=== PATIENT | female | born 1945 | race Caucasian/White ===

== ENCOUNTER 2018-06-17 13:39 | Observation (INO) ==
[2018-06-17 20:22] LABS: Baso % (Auto) 1.2 % (0.0-2.0); Eos # (Auto) 0.1 th/mm3 (0.0-0.4); Eos % (Auto) 2.9 % (0.0-4.0); Hematocrit 43.3 % (35.0-46.0); Hemoglobin 14.6 gm/dL (11.6-15.3); Lymph # (Auto) 1.4 th/mm3 (1.0-4.8); Lymph % (Auto) 33.9 % (9.0-44.0); Mean Corpuscular HGB Conc 33.8 % (32.0-36.0); Mean Corpuscular Hemoglobin 32.2 pg (27.0-34.0); Mean Corpuscular Volume 95.3 fL (80.0-100.0); Mean Platelet Volume 7.8 fL (7.0-11.0); Mono # (Auto) 0.2 th/mm3 (0.0-0.9); Mono % (Auto) 5.1 % (0.0-8.0); Neut # (Auto) 2.4 th/mm3 (1.8-7.7); Neut % (Auto) 56.9 % (16.0-70.0); Platelet Count 307 th/mm3 (150-450); Red Blood Count 4.55 mil/mm3 (4.00-5.30); Red Cell Distribution Width 14.4 % (11.6-17.2); White Blood Count 4.2 th/mm3 (4.0-11.0)
--- NOTE | 2018-06-17 20:29 | XR ---
EXAM DATE: 06/17/2018 8:26 PM EST AGE/SEX: 72 years / Female INDICATIONS: Chest pain and shortness of breath for 10 days. CLINICAL DATA: This is the patient's initial encounter. Patient reports that signs and symptoms have been present for 1 week and indicates a pain score of 7/10. MEDICAL/SURGICAL HISTORY: None. None. COMPARISON: No prior exams available for comparison. FINDINGS: Linear parenchymal opacity in the right lower lung zone. The cardiomediastinal contours are unremark able. Osseous structures are intact. CONCLUSION: 1. Linear right lower lung zone parenchymal opacity, likely atelectasis/scarring. Electronically signed by: Miguel Gomez MD Board Certified Radiologist 06/17/2018 8:28 PM EST
[2018-06-17 20:36] LABS: Activated Partial Thrombo Time 26.4 sec (23.4-31.7); Prothrombin Time 9.8 sec (9.8-11.6)
[2018-06-17 20:37] LABS: Alanine Aminotransferase 35 U/L (10-53)
[2018-06-17 20:41] LABS: Alkaline Phosphatase 67 U/L (45-117); Creatine Kinase 125 U/L (26-192); Total Protein 7.6 g/dL (6.4-8.2)
[2018-06-17 20:46] LABS: Albumin 3.7 g/dL (3.4-5.0); Anion Gap 7 meq/L (5-15); Aspartate Aminotransferase 25 U/L (15-37); Blood Urea Nitrogen 13 mg/dL (7-18); Carbon Dioxide 27.4 meq/L (21.0-32.0); Chloride 108 meq/L (98-107); Glomerular Filtration Rate 81 mL/min (>89); Glucose,Random 105 mg/dL (74-106); Magnesium 2.2 mg/dL (1.5-2.5); Sodium 142 meq/L (136-145)
[2018-06-17 20:53] LABS: Creatine Kinase MB 1.8 ng/mL (0.5-3.6)
--- NOTE | 2018-06-17 20:54 | ED ---
HPI General Chief Complaint: Shortness of Breath/Dyspnea Stated Complaint: Sob/weakness complaint Time Seen by Provider: 06/17/18 19:00 Source: patient and RN notes reviewed Mode of arrival: ambulatory Limitations: no limitations History of Present Illness 72-year-old female presents to the emergency department for evaluation of shortness of breath with exertion for 10 days. She states it is progressively been worsening. She states she has no shortness of breath at rest, only with exertion. She also states she has had about 5 episodes of chest heaviness with exertion as well. She has not at this time. Patient states that the shortness breath is worse this morning and she was even short of breath while getting dressed. Patient reports history of RLS, hypothyroidism. Patient is from [place], arrived on May 05, over 30 days ago. No hemoptysis. No leg swelling. No history of DVT or PE. Patient denies any cough or cold symptoms. No fevers. No headache. No abdominal pain. No nausea, vomiting, diarrhea. She denies any syncope. She reports some associated weakness. Moderate severity. MD Complaint: Reports shortness of breath Onset (ago): day(s) () Context: Reports occurred during exertion Severity: moderate Consistency/Duration: intermittent Relieving factors: rest Exacerbating factors: exertion Known history of: Denies COPD, asthma, congestive heart failure, diabetes, recurrent pneumonia, aspiration pneumonia, HIV, PE, DVT and IVDU Associated symptoms: Reports chest pain; Denies fever, cough, wheezing, sputum production, orthopnea, lower extremity pain, hemoptysis, diaphoresis, nausea/ vomiting, syncope, abdominal pain, rash, sense of impending doom, chest congestion, dizziness and lightheadedness Treatment prior to arrival: Reports none Related Data Home Medications Medication Instructions Recorded Confirmed diclofenac-misoprostol 1 tab PO BID 06/17/18 06/17/18 levothyroxine 88 mcg PO DAILY 06/17/18 06/17/18 pramipexole 0.25 mg PO QPM 06/17/18 06/17/18 Allergies Allergy/AdvReac Type Severity Reaction Status Date / Time Penicillins Allergy Itching Verified 06/17/18 13:50 Review of Systems ROS: all other systems reviewed are negative [facility] Medical History Medical History Restless leg syndrome (Acute) Thyroid disease (Acute) Social History Social History Substance History: No History of Abuse Smoking Status: Never smoker How Often Do You Have a Drink Containing Alcohol: Never Recent Travel in [facility] within the Last 8 Weeks: No Recent Out of Country Travel within the Last 8 Weeks: Yes Immunization History Tetanus Immunization: <5 Years Exam Narrative Exam Narrative: GENERAL: Well-nourished, well-developed female patient, afebrile SKIN: Focused skin assessment warm/dry. HEAD: Normocephalic. Atraumatic EYES: No scleral icterus. No injection or drainage. NECK: Supple, trachea midline. No JVD or lymphadenopathy. CARDIOVASCULAR: Regular rate and rhythm without murmurs, gallops, or rubs. Bilateral radial and pedal pulses are 2+ RESPIRATORY: Breath sounds equal bilaterally. No accessory muscle use. Lung sounds are clear to auscultation GASTROINTESTINAL: Abdomen soft, non-tender, nondistended. MUSCULOSKELETAL: No cyanosis, or edema. BACK: Nontender without obvious deformity. No CVA tenderness. Course Initial Documented Vital Signs Temperature 98.1 F 06/17/18 13:44 Pulse Rate 94 H 06/17/18 13:44 Respiratory Rate 16 06/17/18 13:44 Blood Pressure 188/75 H 06/17/18 13:44 Pulse Oximetry 97 06/17/18 13:44 Last Documented Vital Signs Temperature 98.1 F 06/17/18 13:44 Pulse Rate 76 06/17/18 20:21 Respiratory Rate 16 06/17/18 19:15 Blood Pressure 184/76 H 06/17/18 19:15 Pulse Oximetry 98 06/17/18 20:21 Medical Decision Making BELKIS Attestation BELKIS supervised visit: Yes Attestation: I, Dr. Leon, have reviewed the advance practice practitioner's documentation and am in agreement, met with the patient face to face, made the diagnosis, and the medical decision making was done by me. *My assessment and Findings: Patient seen and evaluated by PA, please see PA notes for further details. Workup fairly unremarkable but considering her history, planning to admit to chest pain center for further evaluation. MDM Narrative Medical decision making narrative: 72-year-old female presents to the emergency department for evaluation of shortness of exertion for the past 10 days as well as some intermittent chest heaviness with exertion. No shortness of breath or chest pain at this time. IV access obtained. CBC is unremarkable. CMP is unremarkable. CK is 125. Troponin is less than 0.02. Magnesium is 2.2. BNP is 27. PTT is 26.4. PT is 9.8, INR 1.0. Chest x-ray shows linear right lower lung zone parenchymal opacity, likely atelectasis/scarring. Patient is given aspirin 162 mg p.o. Medical Screen Exam Complete: Yes Emergency Medical Condition: Yes Differential Diagnosis Differential Diagnosis: ACS vs. pneumonia vs. CHF vs. pneumothorax vs. angina vs. PE Medical Records Medical records reviewed: Yes I reviewed the patient's medical records. Lab Data Result diagrams: 06/17/18 19:25 06/17/18 19:25 Lab Results 06/17/18 06/17/18 06/17/18 Range/Units 19:25 19:25 19:25 WBC 4.2 (4.0-11.0) th/mm3 RBC 4.55 (4.00-5.30) mil/mm3 Hgb 14.6 (11.6-15.3) gm/dL Hct 43.3 (35.0-46.0) % MCV 95.3 (80.0-100.0) fL MCH 32.2 (27.0-34.0) pg MCHC 33.8 (32.0-36.0) % RDW 14.4 (11.6-17.2) % Plt Count 307 (150-450) th/mm3 MPV 7.8 (7.0-11.0) fL Neut % (Auto) 56.9 (16.0-70.0) % Lymph % (Auto) 33.9 (9.0-44.0) % Yell % (Auto) 5.1 (0.0-8.0) % Eos % (Auto) 2.9 (0.0-4.0) % Baso % (Auto) 1.2 (0.0-2.0) % Neut # (Auto) 2.4 (1.8-7.7) th/mm3 Lymph # (Auto) 1.4 (1.0-4.8) th/mm3 Yell # (Auto) 0.2 (0.0-0.9) th/mm3 Eos # (Auto) 0.1 (0.0-0.4) th/mm3 Baso # (Auto) 0.0 (0.0-0.2) th/mm3 WBC Differential . Differential Comment Auto diff final PT 9.8 (9.8-11.6) sec INR 1.0 Ratio APTT 26.4 (23.4-31.7) sec Sodium 142 (136-145) meq/L Potassium 4.0 (3.5-5.1) meq/L Chloride 108 H (98-107) meq/L Carbon Dioxide 27.4 (21.0-32.0) meq/L Anion Gap 7 (5-15) meq/L BUN 13 (7-18) mg/dL Creatinine 0.71 (0.50-1.00) mg/dL Estimated GFR 81 L (>89) mL/min Random Glucose 105 (74-106) mg/dL Calcium 9.0 (8.5-10.1) mg/dL Magnesium 2.2 (1.5-2.5) mg/dL Total Bilirubin 0.2 (0.2-1.0) mg/dL AST 25 (15-37) U/L ALT 35 (10-53) U/L Alkaline Phosphatase 67 (45-117) U/L Total Creatine Kinase 125 (26-192) U/L CK-MB (CK-2) 1.8 (0.5-3.6) ng/mL Troponin I Less than 0.02 L (0.02-0.05) ng/mL B-Natriuretic Peptide (0-100) pg/mL Total Protein 7.6 (6.4-8.2) g/dL Albumin 3.7 (3.4-5.0) g/dL 06/17/18 Range/Units 19:25 WBC (4.0-11.0) th/mm3 RBC (4.00-5.30) mil/mm3 Hgb (11.6-15.3) gm/dL Hct (35.0-46.0) % MCV (80.0-100.0) fL MCH (27.0-34.0) pg MCHC (32.0-36.0) % RDW (11.6-17.2) % Plt Count (150-450) th/mm3 MPV (7.0-11.0) fL Neut % (Auto) (16.0-70.0) % Lymph % (Auto) (9.0-44.0) % Yell % (Auto) (0.0-8.0) % Eos % (Auto) (0.0-4.0) % Baso % (Auto) (0.0-2.0) % Neut # (Auto) (1.8-7.7) th/mm3 Lymph # (Auto) (1.0-4.8) th/mm3 Yell # (Auto) (0.0-0.9) th/mm3 Eos # (Auto) (0.0-0.4) th/mm3 Baso # (Auto) (0.0-0.2) th/mm3 WBC Differential Differential Comment PT (9.8-11.6) sec INR Ratio APTT (23.4-31.7) sec Sodium (136-145) meq/L Potassium (3.5-5.1) meq/L Chloride (98-107) meq/L Carbon Dioxide (21.0-32.0) meq/L Anion Gap (5-15) meq/L BUN (7-18) mg/dL Creatinine (0.50-1.00) mg/dL Estimated GFR (>89) mL/min Random Glucose (74-106) mg/dL Calcium (8.5-10.1) mg/dL Magnesium (1.5-2.5) mg/dL Total Bilirubin (0.2-1.0) mg/dL AST (15-37) U/L ALT (10-53) U/L Alkaline Phosphatase (45-117) U/L Total Creatine Kinase (26-192) U/L CK-MB (CK-2) (0.5-3.6) ng/mL Troponin I (0.02-0.05) ng/mL B-Natriuretic Peptide 27 (0-100) pg/mL Total Protein (6.4-8.2) g/dL Albumin (3.4-5.0) g/dL Imaging Data Radiologist's impression: Chest X-Ray 06/17/18 19:17 CONCLUSION: 1. Linear right lower lung zone parenchymal opacity, likely atelectasis/ scarring. Discharge Plan Discharge Disposition Patient Disposition: ED Admit(ED Internal Use Only) Discharge Order Discharge Orders: ED Use Only Admit Order (Routine); Ordered 06/17/18 Ordered By: Sammie Curtis Discharge Details Diagnosis: Chest pain Physicians Team ED Provider: Clementina Leon ED Midlevel Provider: Sammie Curtis Primary Care Provider: Primary Care June Palacios Attending Provider: Steve Stockton Status ED Status: Admitted Observation Patient
[2018-06-17] MEDS ORDERED: Acetaminophen 500 MG Tablet PO PRN (21:57)
[2018-06-17 23:42] LABS: Creatine Kinase 106 U/L (26-192)
[2018-06-18 02:04] LABS: Creatine Kinase 102 U/L (26-192)
[2018-06-18 06:45] VITALS: RESP 16
[2018-06-18 07:45] VITALS: BP 155/74; TEMP 98.4; O2SAT 95
[2018-06-18] MEDS ORDERED: Regadenoson Inj 0.4 MG/5 ML Syringe IV.PUSH ONE (09:13)
--- NOTE | 2018-06-18 10:07 | P.HPCA ---
History of Present Illness Primary Care Physician: No Primary Care Physician Chief Complaint: Chest pain and shortness of breath History of Present Illness: This is a 72-year-old female with history of hypothyroidism and restless leg syndrome that presents to ED with complaint of 10 days shortness of breath with activity and over the last 7 days central chest heaviness with activity. She states that the symptoms are resolved within about 5 minutes after remaining still. Denies nausea or diaphoresis. Patient denies history of CAD and cannot recall recent cardiac workup. She and her are from [place] and drove down about a month ago over 2 days. Denies swelling in her legs. Denies inspirational chest discomfort. Denies history of clotting disorders. Denies sensation of heart beating rapidly or irregularly. Past medical history: Hypothyroidism and restless leg syndrome. Denies hypertension, hyperlipidemia, diabetes, and CAD. Family history: She states that her father had late onset heart disease and age 90 of an ND. She has a sister that age 72 of congestive heart failure but does not know any more details regarding her [employer]. Social history: Lifetime non-smoker. Rarely has alcohol. Denies illicit drugs. She is . Surgical history partial left knee and tonsillectomy. - Diagnosis (1) Chest pain (2) Dyspnea Review of Systems General: Patient denies fevers or chills. HEENT: Patient denies headache, sore throat, difficulty swallowing. Cardiovascular: Has the chest discomfort as mentioned above. Denies sensation of heart beating rapidly or irregularly. No syncope. Denies diaphoresis. Respiratory: She has been short of breath with activity. Denies inspirational chest discomfort. Denies coughing wheezing or hemoptysis. GI: Patient denies nausea, vomiting, diarrhea, abdominal pain, bloody stools. Musculoskeletal: Patient denies joint pain or edema. Denies calf pain or edema. Neurovascular: Patient denies numbness, tingling, weakness in extremities. Denies headache. Endocrine: Denies polyuria and polydipsia. Hematologic: Denies easy bruising. Skin: Denies rash or itching. PMFSH - History History Provided By: Patient - Medical History Medical History: Medical History (Last Reviewed 06/17/18 @ 20:51 by FLYNN Chandler) Restless leg syndrome Thyroid disease - Tobacco History Second Hand Smoke Exposure: No Tobacco Use In Past 30 Days: No Smoking Status: Never smoker - Alcohol History How Often Do You Have a Drink Containing Alcohol: Monthly or less - Substance Use History Substance History: No History of Abuse - Travel History Recent Travel in the [place] Within the Last 8 Weeks: No Recent Travel Out of the Country Within the Last 8 Weeks: Yes - Immunization History Tetanus Immunization: <5 Years Medications and Allergies Active Medications: Active Medications Acetaminophen (Tylenol) 500 mg PO Q4H PRN PRN Reason: HEADACHE Albuterol (Albuterol Neb (Prn)) 2.5 mg NEB UNSCH PRN PRN Reason: SHORTNESS OF BREATH/WHEEZING Albuterol (Duoneb Neb (Prn)) 1 ampul NEB UNSCH PRN PRN Reason: SHORTNESS OF BREATH/WHEEZING Nitroglycerin (Nitrostat Sl) 0.4 mg SL Q5M PRN PRN Reason: CHEST PAIN Ondansetron HCl (Zofran Inj) 4 mg IV.PUSH Q6H PRN PRN Reason: NAUSEA Sodium Chloride (Ns Flush) 2 ml IV.FLUSH BID GORDON Sodium Chloride (Ns Flush) 2 ml IV.FLUSH PRN PRN PRN Reason: FLUSH AFTER USING IV ACCESS Allergies Allergy/AdvReac Type Severity Reaction Status Date / Time Penicillins Allergy Itching Verified 06/17/18 13:50 Home Medications Medication Instructions Recorded Confirmed Type diclofenac-misoprostol 1 tab PO BID 06/17/18 06/17/18 History levothyroxine 88 mcg PO DAILY 06/17/18 06/17/18 History pramipexole 0.25 mg PO QPM 06/17/18 06/17/18 History Exam Vital signs: Vital Signs 06/17/18 13:44 06/17/18 18:38 06/17/18 19:15 Temperature 98.1 F Pulse Rate 94 H 77 71 Respiratory Rate 16 22 16 Blood Pressure 188/75 H 172/74 H 184/76 H Pulse Oximetry 97 99 95 06/17/18 20:21 06/17/18 21:30 06/17/18 22:45 Temperature Pulse Rate 76 78 76 Respiratory Rate 16 19 Blood Pressure 170/68 H 163/83 H Pulse Oximetry 98 96 97 06/18/18 00:00 06/18/18 04:00 06/18/18 07:44 Temperature 97.4 F L 98.4 F Pulse Rate 79 74 70 Respiratory Rate 14 16 16 Blood Pressure 151/81 H 151/70 H 155/74 H Pulse Oximetry 97 96 95 06/18/18 09:30 Temperature Pulse Rate Respiratory Rate Blood Pressure Pulse Oximetry 95 Intake & Output 06/17/18 06/18/18 06/18/18 18:59 06:59 18:59 Intake Total 480 / 480 Balance 480 / 480 Weight 81.647 kg 81.647 kg Intake: Oral 480 / 480 Other: Date of Last Bowel Movement 06/17/18 Weight On Admission 81.647 kg Narrative: GENERAL: This is a well-nourished, well-developed patient, in no apparent distress. Patient speaks in clear complete sentences. Patient is pleasant. HEENT: Head is atraumatic and normocephalic. Neck is supple without lymphadenopathy and trachea is midline. No JVD or carotid bruits. CARDIOVASCULAR: Grade 3 systolic murmur right sternal border radiating to the neck. Regular rate and rhythm without gallops, or rubs. RESPIRATORY: Clear to auscultation. Breath sounds equal bilaterally. No wheezes , rales, or rhonchi. Chest wall is nontender. No use of accessory muscles. GASTROINTESTINAL: Abdomen is nontender, nondistended. Abdomen soft. No obvious pulsatile mass or bruit. No CVA tenderness. Strong femoral pulses bilaterally. Normal bowel sounds in all quadrants. MUSCULOSKELETAL: Patient is moving upper and lower extremities freely. No calf tenderness or edema, no Homans sign. Strong pulses in upper and lower extremities. NEUROLOGICAL: Patient is alert and oriented. Cranial nerves 2-12 are grossly intact. No focal deficits and speech is clear. SKIN: No rash and turgor is normal. Results 06/17/18 19:25 06/17/18 19:25 Cardiac Enzymes 06/17/18 06/17/18 06/17/18 Range/Units 19:25 19:25 22:45 AST 25 (15-37) U/L CK-MB (CK-2) 1.8 (0.5-3.6) ng/mL Troponin I Less than 0.02 L Less than 0.02 L (0.02-0.05) ng/mL B-Natriuretic Peptide 27 (0-100) pg/mL 06/18/18 Range/Units 01:35 AST (15-37) U/L CK-MB (CK-2) (0.5-3.6) ng/mL Troponin I Less than 0.02 L (0.02-0.05) ng/mL B-Natriuretic Peptide (0-100) pg/mL Coagulation 06/17/18 06/17/18 Range/Units 19:25 19:25 PT 9.8 (9.8-11.6) sec APTT 26.4 (23.4-31.7) sec B-Natriuretic Peptide 27 (0-100) pg/mL CBC 06/17/18 Range/Units 19:25 WBC 4.2 (4.0-11.0) th/mm3 RBC 4.55 (4.00-5.30) mil/mm3 Hgb 14.6 (11.6-15.3) gm/dL Hct 43.3 (35.0-46.0) % Plt Count 307 (150-450) th/mm3 Neut # (Auto) 2.4 (1.8-7.7) th/mm3 Lymph # (Auto) 1.4 (1.0-4.8) th/mm3 [place] # (Auto) 0.2 (0.0-0.9) th/mm3 Eos # (Auto) 0.1 (0.0-0.4) th/mm3 Baso # (Auto) 0.0 (0.0-0.2) th/mm3 Comprehensive Metabolic Panel 06/17/18 Range/Units 19:25 Sodium 142 (136-145) meq/L Potassium 4.0 (3.5-5.1) meq/L Chloride 108 H (98-107) meq/L Carbon Dioxide 27.4 (21.0-32.0) meq/L BUN 13 (7-18) mg/dL Creatinine 0.71 (0.50-1.00) mg/dL Calcium 9.0 (8.5-10.1) mg/dL AST 25 (15-37) U/L ALT 35 (10-53) U/L Alkaline Phosphatase 67 (45-117) U/L Total Protein 7.6 (6.4-8.2) g/dL Albumin 3.7 (3.4-5.0) g/dL Intake and Output 06/17/18 06/18/18 06/18/18 22:59 06:59 14:59 Intake Total 480 / 480 Balance 480 / 480 Intake: Oral 480 / 480 Other: Date of Last Bowel Movement 06/17/18 Weight 81.647 kg Weight On Admission 81.647 kg - Imaging and Cardiology Imaging: Impressions Chest X-Ray 06/17/18 19:17 CONCLUSION: 1. Linear right lower lung zone parenchymal opacity, likely atelectasis/ scarring. EKG interpretations - EKG EKG shows: sinus rhythm (EKGs are sinus rhythm without significant ST segment depressions or elevations.) Caprini VTE Risk Assessment Caprini VTE Risk Assessment: Moderate/High Risk (score >= 2) Caprini Risk Assessment Model: Point Value = 1 Point Value = 2 Point Value = 3 Point Value = 5 Age 41-60 Minor surgery BMI > 25 kg/m2 Swollen legs Varicose veins or History of unexplained or recurrent spontaneous Oral contraceptives or hormone replacement Sepsis (< 1 month) Serious lung disease, including pneumonia (< 1 month) Abnormal pulmonary function Acute myocardial infarction Congestive heart failure (< 1 month) History of inflammatory bowel disease Medical patient at bed rest Age 61-74 Arthroscopic surgery Major open surgery (> 45 min) Laparoscopic surgery (> 45 min) Malignancy Confined to bed (> 72 hours) Immobilizing plaster cast Central venous access Age >= 75 History of VTE Family history of VTE Factor V Leiden Prothrombin [id number] Lupus anticoagulant Anticardiolipin antibodies Elevated serum homocysteine Heparin-induced thrombocytopenia Other congenital or acquired thrombophilia Stroke (< 1 month) Elective arthroplasty Hip, pelvis, or leg fracture Acute spinal cord injury (< 1 month) Prophylaxis Regimen: Total Risk Factor Score Risk Level Prophylaxis Regimen 0-1 Low Early ambulation 2 Moderate Order ONE of the following: *Sequential Compression Device (SCD) *Heparin 5000 units SQ BID 3-4 Higher Order ONE of the following medications: *Heparin 5000 units SQ TID *Enoxaparin/Lovenox 40 mg SQ daily (WT < 150 kg, CrCl > 30 mL/min) *Enoxaparin/Lovenox 30 mg SQ daily (WT < 150 kg, CrCl > 10-29 mL/min) *Enoxaparin/Lovenox 30 mg SQ BID (WT < 150 kg, CrCl > 30 mL/min) AND/OR *Sequential Compression Device (SCD) 5 or more Highest Order ONE of the following medications: *Heparin 5000 units SQ TID (Preferred with Epidurals) *Enoxaparin/Lovenox 40 mg SQ daily (WT < 150 kg, CrCl > 30 mL/min) *Enoxaparin/Lovenox 30 mg SQ daily (WT < 150 kg, CrCl > 10-29 mL/min) *Enoxaparin/Lovenox 30 mg SQ BID (WT < 150 kg, CrCl > 30 mL/min) AND *Sequential Compression Device (SCD) Assessment and Plan - Assessment (1) Chest pain Code(s): R07.9 - Chest pain, unspecified Status: Acute (2) Dyspnea Code(s): R06.00 - Dyspnea, unspecified Status: Acute - Plan * Chest pain: Patient has had serial cardiac enzymes and EKGs for ruling out purposes and has been seen by Dr. Bell of cardiology and the chest pain center. She will undergo a Lexiscan and if nonischemic will be discharged home with instructions to follow-up with her PCP. She should discuss thyroid function with her PCP and also her cardiac murmur with cardiology when returning to [place]. Return to ED for interval issues. Resume her home medications. * Dyspnea: We will get Lexiscan. If nonischemic will be instructed to follow- up with PCP and return to ED for interval issues. Patient is stable at this time. She is agreeable to this plan. H&P: Quality - VTE Deep Vein Thrombosis/Pulmonary Embolism Present on Admission: No (1) Chest pain Qualifiers: Chest pain type: unspecified Qualified Code(s): R07.9 - Chest pain, unspecified
--- NOTE | 2018-06-18 10:15 | P.PNCA ---
Subjective Interval history: Very pleasant 72-year-old [place] lady visiting in this area over the winter. She presents currently as described in the history and physical with shortness of breath with exertion over the last 10 days or so and several episodes of chest heaviness also precipitated by exertion and relieved by rest. She also complains to me of significant fatigue which is been worse over the last year and not addressed by her physician in [place]. She does have a history of hypothyroidism and is on thyroid medication which is not been checked in a year. History is documented is otherwise accurate Medications and Allergies Active Medications: Active Medications Acetaminophen (Tylenol) 500 mg PO Q4H PRN PRN Reason: HEADACHE Albuterol (Albuterol Neb (Prn)) 2.5 mg NEB UNSCH PRN PRN Reason: SHORTNESS OF BREATH/WHEEZING Albuterol (Duoneb Neb (Prn)) 1 ampul NEB UNSCH PRN PRN Reason: SHORTNESS OF BREATH/WHEEZING Nitroglycerin (Nitrostat Sl) 0.4 mg SL Q5M PRN PRN Reason: CHEST PAIN Ondansetron HCl (Zofran Inj) 4 mg IV.PUSH Q6H PRN PRN Reason: NAUSEA Sodium Chloride (Ns Flush) 2 ml IV.FLUSH BID GORDON Sodium Chloride (Ns Flush) 2 ml IV.FLUSH PRN PRN PRN Reason: FLUSH AFTER USING IV ACCESS Allergies Allergy/AdvReac Type Severity Reaction Status Date / Time Penicillins Allergy Itching Verified 06/17/18 13:50 Home Medications Medication Instructions Recorded Confirmed Type diclofenac-misoprostol 1 tab PO BID 06/17/18 06/17/18 History levothyroxine 88 mcg PO DAILY 06/17/18 06/17/18 History pramipexole 0.25 mg PO QPM 06/17/18 06/17/18 History Physical Exam Vital signs: Vital Signs 06/17/18 13:44 06/17/18 18:38 06/17/18 19:15 Temperature 98.1 F Pulse Rate 94 H 77 71 Respiratory Rate 16 22 16 Blood Pressure 188/75 H 172/74 H 184/76 H Pulse Oximetry 97 99 95 06/17/18 20:21 06/17/18 21:30 06/17/18 22:45 Temperature Pulse Rate 76 78 76 Respiratory Rate 16 19 Blood Pressure 170/68 H 163/83 H Pulse Oximetry 98 96 97 06/18/18 00:00 06/18/18 04:00 06/18/18 07:44 Temperature 97.4 F L 98.4 F Pulse Rate 79 74 70 Respiratory Rate 14 16 16 Blood Pressure 151/81 H 151/70 H 155/74 H Pulse Oximetry 97 96 95 06/18/18 09:30 Temperature Pulse Rate Respiratory Rate Blood Pressure Pulse Oximetry 95 Intake & Output 06/17/18 06/18/18 06/18/18 18:59 06:59 18:59 Intake Total 480 / 480 Balance 480 / 480 Weight 81.647 kg 81.647 kg Intake: Oral 480 / 480 Other: Date of Last Bowel Movement 06/17/18 Weight On Admission 81.647 kg Narrative: Well-nourished well-developed woman resting comfortably in bed. Skin is warm and dry Eyes PERRLA EOMI sclera clear Mouth mucous membranes moist and well papillated no lesions Neck supple no JVD masses nodes or bruits Chest is nontender with mildly diminished breath sounds but no rales wheezes or rhonchi Cardiovascular PMI is not displaced there is a regular rhythm with a 2/6 systolic ejection murmur best heard from the apex to the right sternal border. No gallops or rubs are noted Extremities pulses are intact with very slight slowing of the upstroke but not of significance Results 06/17/18 19:25 06/17/18 19:25 Cardiac Enzymes 06/17/18 06/17/18 06/17/18 Range/Units 19:25 19:25 22:45 AST 25 (15-37) U/L CK-MB (CK-2) 1.8 (0.5-3.6) ng/mL Troponin I Less than 0.02 L Less than 0.02 L (0.02-0.05) ng/mL B-Natriuretic Peptide 27 (0-100) pg/mL 06/18/18 Range/Units 01:35 AST (15-37) U/L CK-MB (CK-2) (0.5-3.6) ng/mL Troponin I Less than 0.02 L (0.02-0.05) ng/mL B-Natriuretic Peptide (0-100) pg/mL Coagulation 06/17/18 06/17/18 Range/Units 19:25 19:25 PT 9.8 (9.8-11.6) sec APTT 26.4 (23.4-31.7) sec B-Natriuretic Peptide 27 (0-100) pg/mL CBC 06/17/18 Range/Units 19:25 WBC 4.2 (4.0-11.0) th/mm3 RBC 4.55 (4.00-5.30) mil/mm3 Hgb 14.6 (11.6-15.3) gm/dL Hct 43.3 (35.0-46.0) % Plt Count 307 (150-450) th/mm3 Neut # (Auto) 2.4 (1.8-7.7) th/mm3 Lymph # (Auto) 1.4 (1.0-4.8) th/mm3 Todd # (Auto) 0.2 (0.0-0.9) th/mm3 Eos # (Auto) 0.1 (0.0-0.4) th/mm3 Baso # (Auto) 0.0 (0.0-0.2) th/mm3 Comprehensive Metabolic Panel 06/17/18 Range/Units 19:25 Sodium 142 (136-145) meq/L Potassium 4.0 (3.5-5.1) meq/L Chloride 108 H (98-107) meq/L Carbon Dioxide 27.4 (21.0-32.0) meq/L BUN 13 (7-18) mg/dL Creatinine 0.71 (0.50-1.00) mg/dL Calcium 9.0 (8.5-10.1) mg/dL AST 25 (15-37) U/L ALT 35 (10-53) U/L Alkaline Phosphatase 67 (45-117) U/L Total Protein 7.6 (6.4-8.2) g/dL Albumin 3.7 (3.4-5.0) g/dL Intake and Output 06/17/18 06/18/18 06/18/18 22:59 06:59 14:59 Intake Total 480 / 480 Balance 480 / 480 Intake: Oral 480 / 480 Other: Date of Last Bowel Movement 06/17/18 Weight 81.647 kg Weight On Admission 81.647 kg - Imaging and Cardiology Imaging: Impressions Chest X-Ray 06/17/18 19:17 CONCLUSION: 1. Linear right lower lung zone parenchymal opacity, likely atelectasis/ scarring. Assessment and Plan - Assessment (1) Chest pain Code(s): R07.9 - Chest pain, unspecified Status: Acute Plan: This lady is already ruled out for ACS using standard chest pain center protocol. She will be further evaluated with a Lexiscan. If this is negative she will be discharged to follow-up with her primary care physician in [place]. However she is given instructions to pursue a more thorough evaluation with him including reevaluation of her thyroid medication level. Is also suggested that she should have a baseline echocardiogram to determine the exact status of the murmur. She indicates that she understands that she is going to need to be demanding to get this done in [place] but is agreeable with this plan. Further disposition will be pending the results of the Lexiscan. (2) Dyspnea Code(s): R06.00 - Dyspnea, unspecified Status: Acute - Plan * Chest pain: Patient has had serial cardiac enzymes and EKGs for ruling out purposes and has been seen by Dr. Bell of cardiology and the chest pain center. She will undergo a Lexiscan and if nonischemic will be discharged home with instructions to follow-up with her PCP. She should discuss thyroid function with her PCP and also her cardiac murmur with cardiology when returning to [place]. Return to ED for interval issues. Resume her home medications. * Dyspnea: We will get Lexiscan. If nonischemic will be instructed to follow- up with PCP and return to ED for interval issues. Patient is stable at this time. She is agreeable to this plan. (1) Chest pain Qualifiers: Chest pain type: unspecified Qualified Code(s): R07.9 - Chest pain, unspecified
--- NOTE | 2018-06-18 12:18 | ECG ---
Date Performed: 06/18/2018 Time Performed: 01:39:59 PTAGE: 72 years EKG: Sinus rhythm WITH FIRST DEGREE AV BLOCK BORDERLINE LEFT AXIS DEVIATION LOW QRS VOLTAGE IN PRECORDIAL LEADS INCOMP LETE RIGHT BUNDLE BRANCH BLOCK ABNORMAL ECG No significant change PREVIOUS TRACING : 06/17/2018 22.46 DOCTOR: Arun Bell Interpretating Date/Time 06/18/2018 12:18:42
--- NOTE | 2018-06-18 12:21 | ECG ---
Date Performed: 06/17/2018 Time Performed: 22:46:42 PTAGE: 72 years EKG: Sinus rhythm WITH FIRST DEGREE AV BLOCK BORDERLINE LEFT AXIS DEVIATION ABNORMAL ECG No significant change PREVIOUS TRACING : 06/17/2018 14.21 DOCTOR: Arun Bell Interpretating Date/Time 06/18/2018 12:19:30
--- NOTE | 2018-06-18 12:23 | ECG ---
Date Performed: 06/17/2018 Time Performed: 14:21:00 PTAGE: 72 years EKG: Sinus rhythm BORDERLINE LEFT AXIS DEVIATION BORDERLINE ECG NO PREVIOUS TRACING DOCTOR: Arun Bell Interpretating Date/Time 06/18/2018 12:21:14
--- NOTE | 2018-06-18 12:29 | TR ---
Date Performed: 06/18/2018 Time Performed: 11:51:40 DOCTOR: Arun Bell DRUG LIST: CLINICAL HISTORY: REASON FOR TEST: CHEST PAIN REASON FOR ENDING: OBSERVATION: CONCLUSION: Lexiscan stress test was performed under standard four minute protocol. Radionuclide was injected one minute prior to ending the test. No electrocardiographic abormalities were present to suggest ischemia. Nuclear imaging and interpretation are pending. COMMENTS:
--- NOTE | 2018-06-18 12:53 | NM ---
EXAM DATE: 06/18/2018 12:48 PM EST AGE/SEX: 72 years / Female INDICATIONS:Angina. . Shortness of breath with chest pain for ten days. CLINICAL DATA: This is the patient's initial encounter. Patient reports that signs and symptoms have been present for 2 weeks and indicates a pain score of 2/10. MEDICAL/SURGICAL HISTORY: Hyperthyroidism. None. COMPARISON: No prior exams available for comparison. No external comparison. DOSE: 8.3 mCi Tc 99m Myoview at rest 26.1 mCi [id number] at stress 0.4 mg Lexiscan STRESS SYMPTOMS: Dyspnea. EJECTION FRACTION: 76 % TECHNIQUE: The patient underwent pharmacologic stress with infusion of prescribed dose. Continuous ECG tracing was monitored during stress. Gated SPECT imaging was performed after stress and conventi onal SPECT imaging was performed at rest. The examination was performed on a SPECT/CT scanner, both attenuation and non-corrected datasets were reviewed. FINDINGS: Distribution: The maximum perfused segment at stress is in the inferolateral wall. Perfusion Study: No definite reversible perfusion defects are identified. Gated Study: There are intact wall motion and wall thickening without hypokinetic or dyskinetic segm ents. The ejection fraction is calculated at 76%. RISK CATEGORY: Low (<1% Annual Mortality Rate) CONCLUSION: 1. Negative examination. Electronically signed by: Chema Guadalupe MD Board Certified Radiologist 06/18/2018 12:51 PM EST
[2018-06-18 14:41] VITALS: PULSE 74
== END 2018-06-18 15:46 | disposition home or self-care (01) ==
LOC: NEPD 13:39 → NEDA 13:39 → NEPHCDU 06-18 00:13
PROVIDERS: ADMIT Internal Medicine Cardiovascular Disease; ATTEND Internal Medicine Cardiovascular Disease
DX: Z79.890 Hormone replacement therapy; R01.1 Cardiac murmur, unspecified; I44.0 Atrioventricular block, first degree; G25.81 Restless legs syndrome; E03.9 Hypothyroidism, unspecified; R94.31 Abnormal electrocardiogram [ECG] [EKG]; Z88.0 Allergy status to penicillin; R06.00 Dyspnea, unspecified; R06.02 Shortness of breath; R07.9 Chest pain, unspecified
CPT/HCPCS: 71010; 71045; 78452; 80053; 82550; 82552; 83520; 83735; 83880; 84484; 85025; 85610; 85730; 93005; 93017; 99285; A9502; G0378; J2785; Q9969